=== PATIENT | female | born 1945 | race Caucasian/White ===

== ENCOUNTER 2016-12-24 14:45 | Emergency (ER) | payer MEDICARE ==
[~2016-12-24] VITALS: Ht 152.4 cm; Wt 90.9 kg
[2016-12-24 15:04] VITALS: BP 179/94; PULSE 62; RESP 18; O2SAT 98
--- NOTE | 2016-12-24 15:37 | DRSVH ---
PROCEDURE: X-RAY RIGHT ELBOW COMPLETE, MINIMUM THREE VIEWS ([id number]) INDICATIONS: Fall TECHNIQUE: 3 views of the elbow were acquired. COMPARISON: None. FINDINGS: Bones: There is a nondisplaced fracture involving the radial head. No dislocation is evident. The r emainder of the osseous structures are otherwise intact. Soft tissues: There is a moderate-sized elbow joint effusion. No suspicious soft tissue calcificatio ns. IMPRESSION: 1. Nondisplaced radial head fracture. 2. Prominent elbow effusion. Dictated by: Robert Goodman M.D. on 12/24/2016 at 14:34 Approved by: Robert Goodman M.D. on 12/24/2016 at 14:35
--- NOTE | 2016-12-24 16:39 | ED.REPORT ---
HPI-Trauma Minor / Fall Date of Service Dec 24, 2016 ED Provider: Thai Montenegro MD A 71 year old female not on anticoagulants with a history of left eye blindness presents to the ED after a mechanical ground level fall at 1400 this afternoon. The patient tripped and hit her face on a padded area of the floor. She now reports left-sided facial pain and right elbow pain. The patient denies nausea, vomiting, confusion, headache, loss of consciousness, numbness, tingling, or other symptoms. Her tetanus immunization is up to date. Nursing Notes Stated Complaint: GLF/ FACIAL LACERATION Chief Complaint: Multiple Trauma/Fall Nursing Notes Reviewed: Yes Allergies: Uncoded Allergies: PENICILLIN (Allergy, Intermediate, "Site reaction", 12/24/16) General Time Seen by MD: 16:38 Chief Complaint Fall Hx Obtained From: Patient Arrived By: Walk-in Onset Occurred: 1 - 4 hours ago Symptom Duration: Since onset Caused by: Accidental, Fall on ground Location: Elbow right Face Quality: Painful Severity: Current: Moderate Severity: Maximum: Moderate Pertinent Negative: Relieved by nothing Context: Immunizations All up to date Recent Healthcare: No recent doctor visit Past Medical History Past Medical History Blind left eye Past Surgical History Left eye surgeries Smoking History Unknown if Ever Smoker Social History Other Social History: Good social support Ambulatory Status Independent Review of Systems Review of Systems Note: + Left-sided facial pain - Tingling Constitutional: Denies: Fever Respiratory: Denies: Non-productive cough, Shortness of breath Musculoskeletal: Reports: Joint pain (Right elbow) Neurologic: Denies: Change LOC, Confusion, Headache, Numbness Complete sys rev & neg: except as marked. GI: Denies: Nausea, Vomiting Physical Exam Initial Vital Signs Vital Signs (First) Date Time Temp Pulse Resp B/P Pulse Ox O2 Delivery O2 Flow Rate FiO2 12/24/16 15:04 36.8 62 18 179/94 98 Room Air Initial VS: Reviewed Skin: Warm, Dry, No cyanosis Psychiatric: Mood/affect normal, Behavior normal, Normal thought content General/Constitutional: Awake, Alert, No acute distress Neck: Atraumatic, Supple, Full range of motion, Non-tender, No midline vertebral tend No step-off Head / Eyes: Normocephalic Trauma - General: Positive: Abrasion (Left maxillary prominence ), Ecchymosis ( Left periorbital region) Scalp atraumatic Well healed craniotomy scars about left frontal region No left maxillary prominence deformity Midface stable Left eye medially deviated - at baseline No evidence of intraorbital trauma or trauma to the globe ENT: Airway patent, Mucous membranes moist Trauma - ENT Specific: Negative: Septal hematoma L, Septal hematoma R Dried blood in bilateral nares Respiratory / Chest: Atraumatic, Breath sounds NL, Breath sounds = bilat, No respiratory distress Cardiovascular: Heart rate NL, Regular rhythm, Heart sounds NL, No gallop, No murmurs, No rubs, Peripheral circulation NL (Good radial pulses) Back: Atraumatic, Inspection NL Upper Extremity / MS: Atraumatic, Full range of motion (Passive and active, with pain), Non-tender, No deformity, Neurologic intact (To bilateral fingertips ), Vascular intact (To bilateral fingertips) Lower Extremity / Pelvis / MS: Atraumatic, Inspection NL, Pelvis stable, Pelvis non-tender Neurologic: Oriented X3, Speech NL, No motor deficits, No sensory deficits Interpretation & Diagnostics X-Ray Interpretation Xray Interpretation: IMPRESSION: 1. Nondisplaced radial head fracture. 2. Prominent elbow effusion. Dictated by: Robert Goodman M.D. on 12/24/2016 at 14:34 Study Performed: 3 Views X-Ray Ordered: Elbow right Interpretation / Wet Read by: Interpret - Radiologist Re-Eval/Medical Decision Med Decision/Clinical Course A 71 year old female not on anticoagulants with a history of left eye blindness presents to the ED after a mechanical ground level fall at 1400 this afternoon. The patient tripped and hit her face on a padded area of the floor. She now reports left-sided facial pain and right elbow pain. The patient denies nausea, vomiting, confusion, headache, loss of consciousness, numbness, tingling, or other symptoms. Her tetanus immunization is up to date. Here in the emergency department the patient is afebrile and hemodynamically stable with examination as above. She has some left periorbital ecchymosis but no evidence of closed head injury and midface is stable with intact dentition. There is no evidence of trauma to her globe. Moreover she is already blind on the side. Plain films of her right elbow were obtained as below: 1. Nondisplaced radial head fracture. 2. Prominent elbow effusion. Surprisingly the patient is actively ranging her right elbow without much pain though she does report some discomfort. On examination of her plain films there does seem to be an obvious radial head fracture. She was therefore placed in a long-arm posterior splint and sling. She is neurovascularly intact distal to the injury without any evidence of compartment syndrome. Full survey revealed no other associated injuries except for periorbital ecchymosis as described above. Patient was offered pain medication however she declined. Sling was placed and she remained neurovascularly intact distally. She has been referred to orthopedic surgery on an outpatient basis. Prior to discharge follow-up and return precautions were reviewed in detail with the patient who verbalized understanding and agreement with the plan. The patient was discharged in stable condition. Re-Evaluation/Progress : Time of Eval: 18:30 Patient Status: Condition improved Re-Evaluation/Progress Note: Discussed with patient x-ray results, diagnosis, and plan for discharge. Follow-up and return to the ER instructions given. Patient agrees with plan for care and all questions were addressed. Counseled Regarding: Diagnosis, Need for follow-up, When/why to return to ED Discharge & Departure Impression: Primary Impression: Radial head fracture Encounter type: initial encounter Fracture type: closed Fracture alignment : nondisplaced Laterality: right Qualified Code: S52.124A - Nondisplaced fracture of head of right radius, initial encounter for closed fracture Additional Impressions: Periorbital ecchymosis of left eye Encounter type: initial encounter Qualified Code: S00.12XA - Contusion of left eyelid and periocular area, initial encounter Fall from ground level Disposition: Home Discharge Condition All VS Reviewed: Yes Condition: Improved Patient Instructions: Elbow Fracture in Adults (ED) Additional Instructions: Thank you for seeking care at the emergency room. It is difficult for us to make definitive diagnoses in the ED but we believe that you have an an elbow fracture. Our primary goal today in the ED was to evaluate you for any life-threatening conditions. Your evaluation was reassuring. Use Tylenol or Ibuprofen as directed for pain. Wear the splint/sling until you are seen by the referred orthopedist. Call them on Tuesday to make an appointment. You should follow-up with your primary doctor in the next week. You should return to the ED immediately if you develop swelling, numbnesss, tinlging, discoloration f your fingertips, vomiting/confucion/headache, fevers, vomiting, cough, shortness of breath, chest pain, lightheadedness, weakness or any other concerning signs or symptoms. Thank you for letting us partake in your care today. Referrals: Arcenio Delgado MD (PCP) Delon Francis DO Scribe Attestation Portions of this note were transcribed by Nivia Joy. I, Dr. Montenegro, personally performed the history, physical exam, and medical decision-making; I reviewed and confirmed the accuracy of the information in the transcribed note. Signed by: Meri Gonzalez, 12/24/2016, 21:20 copies to: Delon Francis DO; Arcenio Delgado MD, Beck O MD Dec 24, 2016 16:39 NIVIA JOY Dec 24, 2016 18:35
== END 2016-12-24 19:17 | disposition home or self-care (01) ==
LOC: SED 14:45
DX: S52.124A Nondisplaced fracture of head of right radius, initial encounter for closed fracture (principal); S00.12XA Contusion of left eyelid and periocular area, initial encounter; W18.39XA Other fall on same level, initial encounter; Y93.89 Activity, other specified; Y92.89 Other specified places as the place of occurrence of the external cause; Y99.8 Other external cause status